=== PATIENT | male | born 1985 | race Caucasian/White ===

== ENCOUNTER 2024-02-25 12:33 | Emergency (ER) | payer MEDICAID, SELFPAY ==
[2024-02-25 12:37] VITALS: BP 142/62; PULSE 92; RESP 16; O2SAT 98
--- NOTE | 2024-02-25 12:57 | ED.GENADUL_ITS ---
Discharge Plan Disposition Patient Disposition: Home Condition: Stable Discharge Details Clinical Impression: Medication refill Primary Care Provider: None,None ED Provider: Maykel Anguiano Home Meds and New Rx's Prescriptions: Continued buprenorphine-naloxone 8-2 mg tablet, sublingual 2 tab sublingual DAILY Discharge Instructions Additional Instructions: Follow-up as planned with [facility] If you feel you are suffering from emergent medical process return to the emergency department for reevaluation HPI General Mode of arrival: ambulatory . Date/Time Provider Initiated Documentation: 02/25/24 12:34 . Limitations to Documentation: no limitations . Information obtained by: patient . History of Present Illness 38 year old M presents to the emergency department with the chief complaint of needs suboxone, Patient reports no radiation. Patient started experiencing this day(s) (1) and it has been constant. No relieving factors improve symptom(s), No e xacerbating factors reported . Patient notes denies chest pain and shortness of breath. Related Data Home Medications ?Medication ?Instructions ?Recorded ?Confirmed buprenorphine 8 mg-naloxone 2 mg 2 tab sublingual DAILY 02/25/24 02/25/24 sublingual tablet Allergies Allergy/AdvReac Type Severity Reaction Status Date / Time No Known Allergies Allergy Unverified 02/25/24 12:40 General Stated Complaint: DrugWithdr/MAT RIMA: 4 Review of Systems All systems reviewed & are unremarkable except as noted in HPI and below Constitutional Constitutional: Denies chills, Denies fever(s) and Denies weakness Cardiovascular Cardiovascular: Denies chest pain and Denies dyspnea Respiratory Respiratory: Denies cough and Denies dyspnea Gastrointestinal Gastrointestinal: Denies abdominal pain, Denies nausea and Denies vomiting Musculoskeletal Musculoskeletal: Denies joint swelling Neurologic Neurologic: Denies weakness Exam Const General: no acute distress Orientation: alert [facility] Head: normal to inspection Ears: external ears normal General nose exam: external nose normal Mouth: moist mucous membranes Eyes General: appearance normal, both eyes and all related structures Neck Neck: normal visual inspection Resp Effort & Inspection: normal respiratory effort and able to speak in complete sentences Cardio Rate: regular rate GI Palpation: tender Skin General skin exam: no rashes or lesions noted Neuro General: patient alert and patient oriented x3 Extrem General: normal to inspection Psych Mental Status: mental status grossly normal Course Vital Signs Vital signs: Vital Signs Pulse 92 H 02/25/24 12:37 Respiratory Rate 16 02/25/24 12:37 Blood Pressure 142/62 H 02/25/24 12:37 Pulse Oximetry 98 02/25/24 12:37 Pulse 92 H 02/25/24 12:37 Respiratory Rate 16 02/25/24 12:37 Blood Pressure 142/62 H 02/25/24 12:37 Pulse Oximetry 98 02/25/24 12:37 Pain Level 0 02/25/24 12:37 Medical Decision Making 38-year-old male he otherwise has no complaints. Will give a one-time dose of his 60 mg Suboxone and he will follow-up with her tomorrow. Who is currently on 16 mg of Suboxone per patient daily, was recently released from detention after being there for some time and is at a local sober house and was not sent with any prescriptions. His last dose was yesterday and he is planning going to [facility] tomorrow. He has no signs of withdrawal. Differential Diagnosis Differential Diagnosis: Medication refill Quality:SDOH Health Related Social Needs: Health related social needs problems related to housin g/economic circumstances (Z59.89), feeling lonely/isolated (Z60.8), education (Z55.6) PFSH All Active Problems (Updated 02/25/24 @ 13:05 by Maykel Anguiano MD) Medication refill (Acute) Social History Smoking/Tobacco Use Status: Current every day Tobacco Type: cigarettes Smoking risk assessment performed?: Yes Alcohol Intake: former Drug use: Never Substance use type: former substance user Housing: apartment Do you feel safe at home: Yes Do you feel safe in your relationship?: Yes
[2024-02-25] MEDS: Buprenorphine/Naloxone 8 mg/2 mg FILM 2 EACH SL (13:16)
== END 2024-02-25 13:19 | disposition home or self-care (01) ==
PROVIDERS: Emergency Provider Emergency Medicine
DX: Z76.0 Encounter for issue of repeat prescription (principal); F11.21 Opioid dependence, in remission; F17.210 Nicotine dependence, cigarettes, uncomplicated
CPT/HCPCS: 99281; 99283

== ENCOUNTER 2024-02-26 14:23 | Emergency (ER) | payer MEDICAID, SELFPAY ==
[2024-02-26 14:28] VITALS: BP 169/97; PULSE 116; RESP 15; TEMP 35.8; O2SAT 99
[2024-02-26 14:30] VITALS: BP 169/97; PULSE 116; RESP 15; TEMP 35.8; O2SAT 99
[2024-02-26 14:32] VITALS: BP 146/87; PULSE 109
--- NOTE | 2024-02-26 14:40 | W.ED.GENAD ---
Discharge Plan Disposition Patient Disposition: Home Condition: Stable Discharge Details Clinical Impression: Medication refill Primary Care Provider: None,None ED Provider: Benjamin Tello Home Meds and New Rx's Prescriptions: New buprenorphine-naloxone 8-2 mg film 2 film buccal DAILY 3 Days Qty: 6 0RF Rx Instructions: place 1 film on inside of (each) cheek No Action buprenorphine-naloxone 8-2 mg tablet, sublingual 2 tab sublingual DAILY Discharge Instructions Instructions: Buprenorphine and Naloxone, Substance Misuse Treatment Additional Instructions: You were seen in the emergency department for your medication refill of your Suboxone, we gave you a 3-day supply which should get you through to where you can establish care with the [facility]. Please return for any emergent concerns. Referrals: [facility] [Outside] Discharge Data Discharge Date/Time-TO BE ENTERED AT DEPARTURE: 02/26/24 15:14 HPI General Date/Time Provider Initiated Documentation: 02/26/24 14:35. HPI Narrative: 38 year-old male presents to ED today by POV/ambulating with a chief complaint of request for re-dose of suboxone- and has a minor cold, has establishment with [facility] on . Quality described as mild cold symptoms, no shortness of breath, no radiation to nausea/vomiting, chest pain, shortness of breath, fevers. Severity is described as mild. Palliating factors include nothing specific. Provoking factors include nothing specific. Patient not anticoagulated. Related Data Home Medications ?Medication ?Instructions ?Recorded ?Confirmed buprenorphine 8 mg-naloxone 2 mg 2 tab sublingual DAILY 02/25/24 02/25/24 sublingual tablet buprenorphine 8 mg-naloxone 2 mg 2 film buccal DAILY 3 days #6 ea 02/26/24 sublingual film Previous Rx's ?Medication ?Instructions ?Recorded buprenorphine 8 mg-naloxone 2 mg 2 film buccal DAILY 3 days #6 ea 02/26/24 sublingual film Allergies Allergy/AdvReac Type Severity Reaction Status Date / Time No Known Allergies Allergy Unverified 02/25/24 12:40 General Stated Complaint: GenMedical RIMA: 4 Review of Systems All systems reviewed & are unremarkable except as noted in HPI and below Exam Narrative Exam Narrative: GENERAL APPEARANCE: Well-nourished, non-toxic, awake and alert, atraumatic, no acute distress. SKIN: Warm, pink, dry, intact, without rashes/lesions/ulcerations. HEAD: Normocephalic, atraumatic, normal hair distribution for gender/age. EYES: Normal conjunctiva, no exudates on lids/lashes. ENT: Nares patent, no circumoral cyanosis, no facial swelling NECK: Supple, trachea midline, painless cervical ROM. LUNGS/CHEST: Lungs CTA bilaterally, non-labored respirations, normal A/P diameter, symmetrical expansion, no chest wall deformity HEART (CV/PV): Regular rate and rhythm without murmur, no peripheral edema, no JVD. ABDOMEN: Soft, non-distended, no guarding. MSK: Normal ROM, no swelling/deformity to bilateral UEs or LEs, moving all extremities without weakness, no cyanosis, spine midline without tenderness, normal curvature. NEURO: Mental Status AAOx4 - alert to person, place, time, events No facial droop, no forehead involvement. Motor: No focal weakness - strength 5/5 in bilateral UEs and LEs, proximal and distal, symmetric. Sensory: sensation intact to light touch globally. Gait normal: patient ambulated without ataxia into ED room. PSYCH: euthymic, cooperative, pleasant, appropriate speech Course Vital Signs Vital signs: Vital Signs Temperature 35.8 C L 02/26/24 14:28 Pulse 116 H 02/26/24 14:28 Respiratory Rate 15 02/26/24 14:28 Blood Pressure 169/97 H 02/26/24 14:28 Pulse Oximetry 99 02/26/24 14:28 Temperature 35.8 C L 02/26/24 14:30 Pulse 109 H 02/26/24 14:32 Respiratory Rate 15 02/26/24 14:30 Respiratory Effort Normal 02/26/24 14:30 Respiratory Depth Normal 02/26/24 14:30 Respiratory Pattern Normal 02/26/24 14:30 Blood Pressure 146/87 H 02/26/24 14:32 Blood Pressure Position Sitting 02/26/24 14:30 Pulse Oximetry 99 02/26/24 14:30 Oxygen Delivery Method Room Air 02/26/24 14:30 Oxygen Flow Rate 0 02/26/24 14:30 Medical Decision Making This dictation utilizes [id number] dictation software and may contain unedited grammatical errors. 38 year-old male presents to ED today by POV/ambulating with a chief complaint of request for re-dose of suboxone- and has a minor cold, has establishment with [facility] on . Quality described as mild cold symptoms, no shortness of breath, no radiation to nausea/vomiting, chest pain, shortness of breath, fevers. Severity is described as mild. Palliating factors include nothing specific. Provoking factors include nothing specific. Patients' medical history: substance use disorder. Family and social history: denies IVDU currently, no ETOH. Pertinent exam findings / vital signs include benign cardiopulmonary status, benign abdomen, nontoxic and afebrile. Differential / pathologies of concern include medication assisted substance abuse treatment, mild URI. Diagnostic studies of: -Patient declines workup for URI, will return for any worsening. Interventions of: -Provided Suboxone dose here and 3 days of prescription until he can establish with [facility]. ED Course/Assessment/Plan: 38-year-old male presents for Suboxone dose, has establishment with [facility] on , I did provide him a dose for today and 3 days of prescription Suboxone, he has a mild URI but declines any workup, is not in any respiratory distress. Findings not consistent with respiratory distress, active withdrawal. Disposition of medication refill. Patient verbalized understanding of the plan and return to ED criteria and engaged in shared decision making. Medical Records Medical records reviewed: Yes I reviewed the patient's medical records. Quality:SDOH Health Related Social Needs: Health related social needs problems related to housing/economic circumstances (Z59.89), feeling lonely/isolated (Z60.8), education (Z55.6) PFSH All Active Problems (Updated 02/26/24 @ 14:46 by DAVID Hutson) Medication refill (Acute) Social History Smoking/Tobacco Use Status: Current every day Tobacco Type: cigarettes Smoking risk assessment performed?: Yes Alcohol Intake: former Drug use: Never Substance use type: former substance user Housing: apartment Do you feel safe at home: Yes Do you feel safe in your relationship?: Yes
[2024-02-26] MEDS: Buprenorphine/Naloxone 8 mg/2 mg FILM 2 EACH SL (15:11)
== END 2024-02-26 15:14 | disposition home or self-care (01) ==
PROVIDERS: Emergency Provider Physician Assistant
DX: F11.93 Opioid use, unspecified with withdrawal (principal); Z59.89 Other problems related to housing and economic circumstances; Z60.8 Other problems related to social environment; Z55.6 Problems related to health literacy
CPT/HCPCS: 99283